=== PATIENT | male | born 1990 | race Caucasian/White ===

== ENCOUNTER 2017-04-01 16:25 | Emergency (ER) | payer SELFPAY ==
[~2017-04-01] VITALS: Ht 172.7 cm; Wt 72.6 kg
--- NOTE | 2017-04-01 17:30 | NUR ---
PT PRESENTS TO ER S/P WITNESSED SZ. NAD NOTED. REPORTS HEADACHE WHICH WAS PRESENT BEFORE SZ BUT WORSENED AFTER IT. RESP EVEN UNLABORED. SKIN WARM NONDIAPHORETIC. PT REPORTS BITING TONGUE BUT NO ORAL TRAUMA. DOES NOT APPEAR POSTICTAL AT THIS TIME HOWEVER TRIAGE REPORTS THAT UPON ARRIVAL HE APPEARED POSTICTAL. IN ER BED 12.
--- NOTE | 2017-04-01 17:46 | NUR ---
PT AMBULATORY WITH STEADY GAIT. TRANSPORTED TO CT IN STABLE CONDITION
[2017-04-01 17:49] LABS: BASOPHILS % (AUTO) 0.3 % (0.0-2.0); EOSINOPHILS % (AUTO) 0.3 % (0.0-6.0); HEMATOCRIT 48 % (39-51); HEMOGLOBIN 16.7 g/dL (13.5-17.5); LYMPHOCYTES # (AUTO) 2.1 /CMM (0.8-4.8); LYMPHOCYTES % (AUTO) 21.2 % (20.0-44.0); MEAN CORPUSCULAR HEMOGLOBIN 31 PG (26.0-33.0); MEAN CORPUSCULAR HGB CONC 35 g/dl (31.0-36.0); MEAN CORPUSCULAR VOLUME 90 fL (80-96); MONOCYTES # (AUTO) 0.5 /CMM (0.1-1.30); MONOCYTES % (AUTO) 4.8 % (2.0-12.0); NEUTROPHILS # (AUTO) 7.5 /CMM (1.8-8.9); NEUTROPHILS % (AUTO) 73.4 % (43.0-81.0); PLATELET COUNT (AUTO) 254 /CMM (150-450); RDW COEFFICIENT OF VARIATION 11.6 (11.5-15.0); RED BLOOD CELL COUNT(AUTO) 5.38 MIL/uL (4.5-6.0); WHITE BLOOD COUNT (AUTO) 10.1 K/uL (4.3-11.0)
[2017-04-01 17:56] LABS: PHENCYCLIDINE SCREEN,URINE NEGATIVE (NEGATIVE)
[2017-04-01 17:58] LABS: CALCIUM, SERUM 9.1 mg/dL (8.5-10.1); POTASSIUM 4.2 mmol/L (3.5-5.1)
[2017-04-01 18:01] LABS: CANNABINOID, URINE POSITIVE (NEGATIVE)
[2017-04-01 18:04] LABS: ALBUMIN 4.4 g/dL (3.4-5.0); BILIRUBIN,DIRECT 0.1 mg/dL (0.0-0.2); BILIRUBIN,TOTAL 0.6 mg/dL (0.2-1.0); TOTAL PROTEIN, SERUM 7.3 g/dL (6.4-8.2)
[2017-04-01 18:38] VITALS: BP 127/66
--- NOTE | 2017-04-01 18:38 | NUR ---
Patient discharged to home in stable condition. Written and verbal after care instructions given. Patient verbalizes understanding of instruction. IV removed. Catheter intact and site benign. Pressure and 4x4 applied to site. No bleeding noted.
--- NOTE | 2017-04-01 18:40 | NUR ---
Patient discharged to home in stable condition. Written and verbal after care instructions given. Patient verbalizes understanding of instruction.IV removed. Catheter intact and site benign. Pressure and 4x4 applied to site. No bleeding noted.
== END 2017-04-01 18:41 | disposition home or self-care (01) ==
LOC: ER 16:29
DX: R56.9 Unspecified convulsions (principal); Z88.0 Allergy status to penicillin; F10.20 Alcohol dependence, uncomplicated
CPT/HCPCS: 36415; 70450-TC; 80048-TC; 80076-TC; 80305; 85025-TC; A4606; Z7610

== ENCOUNTER 2017-04-14 10:56 | Emergency (ER) | payer OTHER ==
[~2017-04-14] VITALS: Ht 172.7 cm; Wt 72.6 kg
[2017-04-14 11:10] VITALS: BP 131/73
--- NOTE | 2017-04-14 12:38 | NUR ---
PT DID NOT WISH TO WAIT FOR PRINTED DISCHARGE INSTRUCTIONS. VERBAL DISCHARGE INSTRUCTIONS GIVEN AND PT VERBALIZED UNDERSTANDING. AMBULATED FROM ER WITH SLIGHT UNEVEN GAIT BUT NO DIFFICULTY. GIVEN WORK NOTE AND ED WRAP PER PT REQUEST.
== END 2017-04-14 12:38 | disposition home or self-care (01) ==
LOC: ER 10:59
DX: S96.911A Strain of unspecified muscle and tendon at ankle and foot level, right foot, initial encounter (principal); Z88.0 Allergy status to penicillin; X58.XXXA Exposure to other specified factors, initial encounter; Y93.39 Activity, other involving climbing, rappelling and jumping off; Y92.89 Other specified places as the place of occurrence of the external cause; Y99.8 Other external cause status
CPT/HCPCS: 73630; 99284; A4606; Z7610